=== PATIENT | female | born 1980 | race Caucasian/White ===

== ENCOUNTER 2020-12-10 06:15 | Inpatient (IN) | payer BC ==
[2020-12-10] MEDS ORDERED: Dexamethasone 4 MG/ML SDV ONE (06:41)
[2020-12-10] MEDS ORDERED: fentaNYL 250 MCG/5 ML SDV ONE ×3 (06:41→08:56)
[2020-12-10] MEDS ORDERED: Ondansetron 4 MG/2 ML SDV ONE (06:41)
[2020-12-10] MEDS ORDERED: Glycopyrrolate 0.2 MG/ML 5 ML MDV ONE (06:41)
[2020-12-10] MEDS ORDERED: Rocuronium 50 MG/5 ML Vial ONE (06:41)
[2020-12-10] MEDS ORDERED: Neostigmine Methylsulfate 1 MG/ML 5 ML Syringe ONE (06:41)
[2020-12-10] MEDS ORDERED: Succinylcholine 200 MG/10 ML MDV ONE (06:41)
[2020-12-10] MEDS ORDERED: Propofol 200 MG/20 ML SDV ONE (06:41)
[2020-12-10] MEDS ORDERED: Scopolamine 1.5 MG Transdermal Patch TOP ONE (07:00)
[2020-12-10] MEDS ORDERED: Acetaminophen 500 MG Tab PO ONE (07:00)
[2020-12-10] MEDS ORDERED: Celecoxib 200 MG Cap PO ONE (07:00)
[2020-12-10] MEDS ORDERED: Meropenem 500 MG in Sodium Chloride 0.9% 50 ML IV ONE (07:30)
[2020-12-10] MEDS ORDERED: Dextrose 5%-Lactated Ringers 1,000 ML IV SCH (07:30)
[2020-12-10] MEDS ORDERED: Ketamine 500 MG/5 ML MDV IV SCH (08:30)
[2020-12-10] MEDS ORDERED: Ketamine 50 MG in Sodium Chloride 0.9% 49.5 ML IV SCH (08:30)
[2020-12-10] MEDS ORDERED: SODIUM CHLORIDE 0.9% IV SCH (08:30)
[2020-12-10] MEDS ORDERED: MAGNESIUM SULFATE IV SCH (08:30)
[2020-12-10] MEDS: cefOXitin 2 GM Vial ONE ×2 (09:26→09:40)
[2020-12-10] MEDS ORDERED: hydrOXYzine HCL 100 MG/2 ML SDV IM ONE (10:18)
[2020-12-10] MEDS ORDERED: Ondansetron 4 MG/2 ML SDV IVPUSH ONE (10:28)
[2020-12-10] MEDS ORDERED: Lactated Ringers 1,000 ML ONE (11:18)
[2020-12-10] MEDS ORDERED: Cyclobenzaprine 10 MG Tab PO PRN (11:29)
[2020-12-10] MEDS: Metoclopramide 10 MG/2 ML SDV IVPUSH PRN (11:41)
[2020-12-10] MEDS ORDERED: Acetaminophen 500 MG Tab PO PRN (12:00)
[2020-12-10] MEDS ORDERED: HYDROmorphone 0.5 MG/0.5 ML Syringe IVPUSH PRN (12:00)
[2020-12-10] MEDS ORDERED: Labetalol 20 MG/4 ML Syringe IVPUSH PRN (12:00)
[2020-12-10] MEDS ORDERED: hydrOXYzine HCL 100 MG/2 ML SDV IM PRN (12:00)
[2020-12-10] MEDS ORDERED: Ondansetron 4 MG/2 ML SDV IVPUSH PRN (12:00)
[2020-12-10] MEDS ORDERED: Calcium Gluconate 10% 1 GM/10 ML SDV IVPUSH PRN (12:00)
[2020-12-10] MEDS ORDERED: traMADol 50 MG Tab PO PRN (12:00)
[2020-12-10] MEDS ORDERED: HYDROmorphone 1 MG/ML Syringe IV PRN (12:00)
[2020-12-10] MEDS ORDERED: oxyCODONE 5 MG Tab PO PRN (12:00)
[2020-12-10] MEDS ORDERED: diphenhydrAMINE 50 MG/ML SDV IVPUSH PRN (12:00)
[2020-12-10] MEDS: Dextrose 5%-Lactated Ringers 1,000 ML IV SCH (13:55)
[2020-12-10] MEDS ORDERED: Pantoprazole 40 MG Vial IVPUSH SCH (14:00)
[2020-12-10] MEDS: Meropenem 500 MG in Sodium Chloride 0.9% 50 ML IV SCH ×2 (14:10→19:29)
[2020-12-10] MEDS: Heparin Sodium 5,000 Units/ML Vial SUBCUT SCH ×2 (14:11→21:16)
[2020-12-10] MEDS: Acetaminophen 500 MG Tab PO SCH ×2 (14:12→21:16)
[2020-12-10] MEDS ORDERED: MVI, Adult with Vitamin K 10 ML, Thiamine 200 MG, Zinc/Copper/Manganese/Selenium 1 ML i... IV SCH ×4 (16:00)
[2020-12-11] MEDS ORDERED: Iopamidol 612 MG/ML 50 ML SDV PO ONE (01:56)
[2020-12-11] MEDS: Meropenem 500 MG in Sodium Chloride 0.9% 50 ML IV SCH ×4 (02:52→20:17)
[2020-12-11] MEDS: Dextrose 5%-Lactated Ringers 1,000 ML IV SCH (04:44)
[2020-12-11] MEDS: Acetaminophen 500 MG Tab PO SCH ×3 (05:05→22:16)
[2020-12-11] MEDS: Heparin Sodium 5,000 Units/ML Vial SUBCUT SCH ×3 (05:05→22:17)
[2020-12-11] MEDS ORDERED: hydrOXYzine HCl 25 MG Tab PO PRN (06:33)
--- NOTE | 2020-12-11 08:28 | PN ---
DATE OF SERVICE: 12/11/2020 SUBJECTIVE: Saman is postop day #1. Her upper GI was normal. Vital signs have been stable. Oral intake is 1176 and output 4025. SVETA drain put out 85 mL of a light pink drainage. She has been up ambulating. Pain has been controlled with energy protocol. She has no questions or concerns. OBJECTIVE: GENERAL: Janessa Smith is a pleasant 40-year-old female. She is alert and orientated. VITAL SIGNS: TPR 95.9, 68, and 18 and blood pressure 145/71. HEENT: Negative. NECK: Supple. HEART: Regular rate and rhythm. LUNGS: Clear. ABDOMEN: Dressing is dry and intact. SVETA drain is as above. EXTREMITIES: Without peripheral edema. SCDs are on. ASSESSMENT: 1. Laparoscopic Dana-en-Y gastric bypass surgery. 2. Liver biopsy. 3. Repair of a paraesophageal diaphragmatic hernia. 4. Excision of a mediastinal lipoma. 5. Excision of a cystic peritoneal nodule in gastric fundus. POSTOPERATIVE DIAGNOSES: 1. Morbid obesity. 2. Hepatomegaly. 3. Large diaphragmatic hernia. 4. Mediastinal lipoma. 5. Cystic peritoneal implant on gastric fundus. DATE OF PROCEDURE: 12/10/2020. SURGEON: Varun Rodriguez MD PLAN: 1. Step 2 gastric bypass diet without cereal. 2. Decrease IV D5 LR to 100 mL per hour. 3. Dressing off, may shower. 4. Atarax 50 mg q.4 hours p.r.n. pain. 5. Zofran 4 mg ODT q.4 hours p.r.n. nausea. 6. Communication order to have 3 med cups per hour and record at bedside. 7. Continue use of incentive spirometer. 8. Continue ambulation. 9. We will evaluate p.r.n. or in the a.m. Radha Deluca PA-C /[id number]
--- NOTE | 2020-12-11 09:01 | CR ---
UGI Limited HISTORY: Postbariatric surgery FINDINGS: Patient swallowed water-soluble contrast. Upright views of the abdomen show no evidence of extravasation or obstruction. There is a surgical drain in the left upper quadrant IMPRESSION: Status post bariatric surgery No extravasation or obstruction seen
[2020-12-11] MEDS: Citalopram 20 MG Tab PO SCH (09:47)
[2020-12-11] MEDS: Loratadine 10 MG Tab PO SCH (09:47)
[2020-12-11] MEDS: Celecoxib 200 MG Cap PO SCH ×2 (09:48→20:26)
[2020-12-11] MEDS: SCOPOLAMINE PATCH CHECK TOP SCH (09:49)
[2020-12-11] MEDS: Ondansetron 4 MG Tab.DIS PO PRN (12:52)
[2020-12-11] MEDS: Pantoprazole 40 MG Delayed-Release Granules 1 Packet PO SCH (13:58)
--- NOTE | 2020-12-11 15:01 | US ---
VL Duplex Lwr Ext Veins Comp HISTORY: No Clinical Info FINDINGS: The deep veins of the both lower extremities demonstrate normal augmentation and compressibility. No evidence for deep venous thrombosis. IMPRESSION: Normal bilateral lower extremity venous Doppler study.
[2020-12-11] MEDS ORDERED: MVI, Adult with Vitamin K 10 ML, Thiamine 200 MG, Zinc/Copper/Manganese/Selenium 1 ML i... IV SCH ×4 (16:00)
[2020-12-11] MEDS: Metoclopramide 10 MG/2 ML SDV IVPUSH PRN (22:14)
[2020-12-12] MEDS: Ondansetron 4 MG Tab.DIS PO PRN ×2 (01:07→09:48)
[2020-12-12] MEDS: Dextrose 5%-Lactated Ringers 1,000 ML IV SCH ×3 (01:08→21:16)
[2020-12-12] MEDS: Heparin Sodium 5,000 Units/ML Vial SUBCUT SCH ×3 (06:06→21:14)
[2020-12-12] MEDS: Acetaminophen 500 MG Tab PO SCH ×3 (06:06→21:14)
[2020-12-12] MEDS: Citalopram 20 MG Tab PO SCH (08:22)
[2020-12-12] MEDS: Loratadine 10 MG Tab PO SCH (08:22)
[2020-12-12] MEDS: Celecoxib 200 MG Cap PO SCH ×2 (08:22→21:14)
[2020-12-12] MEDS: SCOPOLAMINE PATCH CHECK TOP SCH (08:23)
[2020-12-12] MEDS ORDERED: Cyanocobalamin (Vitamin B12) 1,000 MCG/ML SDV IM ONE (09:00)
[2020-12-12] MEDS: Metoclopramide 10 MG/2 ML SDV IVPUSH PRN ×2 (09:49→16:47)
--- NOTE | 2020-12-12 11:34 | PN ---
DATE OF SERVICE: 12/12/2020 SUBJECTIVE: Janessa has had quite a bit in the form of nausea, which diminishes after taking Zofran ODT. She states is mainly when drinking water. Reports she has always had a little bit of nausea with drinking water even before surgery, but it is worse now. No emesis. Oral intake was 1340. Urine output 3700. SVETA drain put out 85 mL of serosanguineous drainage. She has been up ambulating and using IS. Pain has been controlled with energy protocol. REVIEW OF SYSTEMS: Remainder of review of systems negative for any pertinent positives or negatives. Janessa does report she had a rash on her chest yesterday, was given some Benadryl. Nothing was reported other than by patient. OBJECTIVE: GENERAL: Janessa Smith is a pleasant 40-year-old female, alert and orientated. VITAL SIGNS: On TPR 97, 66, and 18. Blood pressure 122/67. HEENT: Negative. NECK: Supple. HEART: Regular rate and rhythm. LUNGS: Clear. ABDOMEN: Dressings dry and intact. Abdominal binder is on. SVETA drain as above. EXTREMITIES: Without peripheral edema. DIAGNOSTIC DATA: Duplex scan peripheral vascular ultrasound showed normal bilateral lower extremities. No DVTs. ASSESSMENT: 1. Postoperative nausea. 2. Laparoscopic Dana-en-Y gastric bypass surgery. a. Liver biopsy. b. Repair of paraesophageal diaphragmatic hernia. c. Excision of mediastinal lipoma. d. Excision of cystic peritoneal nodule in gastric fundus. POSTOPERATIVE DIAGNOSES: 1. Morbid obesity. 2. Hepatomegaly. 3. Large diaphragmatic hernia. 4. Mediastinal lipoma. 5. Cystic peritoneal implant on gastric fundus. 6. Date of procedure 12/10/2020. Surgeon: Varun Rodriguez MD. PLAN: Continue to drink three med cups per hour. Discussed sitting upright when drinking fluids and to remain upright to see if this will help with the nausea. Discussed other options of sugar free liquids other than Crystal Light. Continue IV, ambulation and we will evaluate p.r.n. or in a.m. Radha Deluca PA-C /[id number]
[2020-12-12] MEDS: Pantoprazole 40 MG Delayed-Release Granules 1 Packet PO SCH (13:41)
[2020-12-12] MEDS ORDERED: Metoclopramide 10 MG/2 ML SDV ONE (16:44)
[2020-12-13] MEDS: Heparin Sodium 5,000 Units/ML Vial SUBCUT SCH (05:06)
[2020-12-13] MEDS: Acetaminophen 500 MG Tab PO SCH (05:06)
[2020-12-13] MEDS: Celecoxib 200 MG Cap PO SCH (08:33)
[2020-12-13] MEDS: Loratadine 10 MG Tab PO SCH (08:33)
[2020-12-13] MEDS: Citalopram 20 MG Tab PO SCH (08:33)
[2020-12-13] MEDS ORDERED: Magnesium Hydroxide 400 MG/5 ML Susp 30 ML Cup PO ONE (09:00)
--- NOTE | 2020-12-13 15:18 | DISCH ---
ADMISSION DIAGNOSES: 1. Morbid obesity. 2. BMI 59.6. 3. Prediabetes. 4. History of deep vein thrombosis. DISCHARGE DIAGNOSES: Laparoscopic Dana-en-Y gastric bypass surgery: 1. Liver biopsy. 2. Repair of paraesophageal diaphragmatic hernia. 3. Excision of mediastinal lipoma. 4. Excision of cystic peritoneal nodule in gastric fundus. POSTOPERATIVE DIAGNOSES: 1. Morbid obesity. 2. Hepatomegaly. 3. Large diaphragmatic hernia. 4. Mediastinal lipoma. 5. Cystic peritoneal implant in gastric fundus. Date of procedure 12/10/2020. Surgeon: Varun Rodriguez MD. HISTORY: Janessa Smith is a 40-year-old female with longstanding history of morbid obesity and increasing comorbidities. After preoperative evaluation and discussion of possible risks and possible complications, she wished to proceed with surgical procedure. HOSPITAL COURSE: Janessa had her surgery on 12/10/2020. She had no operative complications. On postoperative day #1, her upper GI was normal. Her IV was decreased to 100 mL per hours, and she was started on a step 2 gastric bypass diet. On postoperative day #2, she had quite a bit of postoperative nausea. Oral intake was decreased. She was given Zofran ODT and nausea gradually subsided. On postoperative day #3, Janessa was able to be discharged to home without any complications. PHYSICAL EXAMINATION: GENERAL: Janessa Smith is a pleasant 40-year-old female, height is 5 feet 10 inches, weight is 415 pounds. BMI is 59.6. VITAL SIGNS: TPR 95.7, 59, 16, blood pressure 141/71. HEENT: Negative. NECK: Supple. HEART: Regular rate and rhythm. LUNGS: Clear. ABDOMEN: Trocar sites look good, healing well. Sutures intact. SVETA drain will be removed prior to discharge and a 4 x 4 will be placed over it. Abdominal binder is on. EXTREMITIES: Without peripheral edema. DISPOSITION: Discharged to home. CONDITION: Stable and improving. FOLLOWUP: Appointment with Radha Deluca PA-C, on 12/23/2020 at 11 a.m. at [facility]. HOME MEDICATIONS: 1. Zofran ODT 4 mg p.o. q.4 hours p.r.n. nausea #30. 2. She is to restart her Eliquis the same dose that she was in March after she had a DVT and she will take that until her first postop appointment. 3. Celebrex 200 mg p.o. b.i.d. with food. 4. Tylenol 1000 mg p.o. q.8 hours scheduled. 5. Continue Claritin 10 mg p.o. daily. 6. Torsemide 20 mg p.o. daily p.r.n. 7. Flonase 1 spray in each nostril daily as needed. 8. Citalopram 20 mg p.o. daily. DIET: Step 2 gastric bypass diet without cereal until 12/25/2020. Drink 8 to 10 glasses of water a day. ACTIVITY: No lifting greater than 10 pounds for 2 weeks. OTHER ACTIVITY: Walk 6 times daily. Driving: Do not drive for 1 week. Shower/bathing: May shower. Keep operative site clean and dry. Wear abdominal binder for 2 weeks if tolerated. Notify provider if any fever, increased pain, swelling, redness, drainage, nausea, or vomiting. SPECIAL INSTRUCTION: 1. Start your Eliquis when you get home and continue until your first postop appointment. 2. Wear support hose on the way home and when riding in the car and wear them at home during the day and take off at bedtime. 3. Use incentive spirometer every hour while awake for [address] home to walk 2 to 3 minutes for every hour in the car. /[id number]
--- NOTE | 2020-12-14 15:23 | PCM.EKG ---
#1 Interpretation EKG Date: 12/10/20 Time: 07:40 Rhythm: NSR Rate (Beats/Min): 67 [place]: Normal P-Wave: Present QRS: Normal ST-T: Normal QT: Normal DE/PQ Interval: normal Comparison: NA - No Prior EKG
--- NOTE | 2021-01-25 10:06 | OR ---
DATE OF PROCEDURE: 12/10/2020 SURGEON: Varun Rodriguez MD PREOPERATIVE DIAGNOSIS: Morbid obesity. POSTOPERATIVE DIAGNOSES: 1. Morbid obesity. 2. Marked hepatomegaly. 3. Large paraesophageal diaphragmatic hernia. 4. Mediastinal lipoma. 5. Cystic peritoneal implant on gastric fundus. OPERATIVE PROCEDURES: Diagnostic laparoscopy with: 1. Laparoscopic Dana-en-Y gastric bypass with long limb gastroenterostomy (31309). 2. Jamey-Cut needle liver biopsy (95656). 3. Repair of paraesophageal diaphragmatic hernia (84634). 4. Excision of mediastinal lipoma (31090). 5. Excision of cystic peritoneal nodule overlying gastric fundus (30668). ANESTHESIA: General. MEAT PACKAGER: Radha Deluca PA-C INDICATIONS FOR PROCEDURE: This is a 40-year-old female presenting with longstanding morbid obesity and increasingly significant comorbidities. After preoperative evaluation and discussion, she wished to proceed with a gastric bypass procedure. Potential risks of the procedure including bleeding, infection, leaks from various GI tract closures, problems with bowel obstruction over time as well as possibility of cardiopulmonary, septic, or hemorrhagic complications leading to were all discussed, and the patient wishes to proceed. DETAILS OF PROCEDURE: The patient was taken to the operating room, placed in a supine position. After general endotracheal anesthesia was induced, she was converted to a lithotomy position and the abdomen prepped and draped. 15 cm inferior and 5 cm left of the xiphoid process, transverse incision was made and the peritoneal cavity entered under direct vision with an Optiview trocar, inflated to 15 mmHg pressure with CO2. Laparoscope was reinserted. No underlying trocar insertion site injuries were seen. Following this, bilateral transversus abdominis plane blocks were placed and 5 additional trocars were placed across the upper and mid abdomen. The patient was noted to have marked hepatomegaly with the liver volume being roughly 2 to 3 times normal and the liver grossly fatty infiltrated. Jamey-Cut needle biopsies were obtained from the left lobe of liver. Minimal bleeding from the biopsy sites was controlled with electrocautery. The patient was noted to have a 2 mm cystic nodule over the gastric fundus. This was excised and sent for histologic evaluation. At this point, the omentum was divided in the midline up to the level of the transverse colon. The small bowel was then identified at the ligament of Treitz and traced out 150 cm distal to that point, where it was divided with the COLIN stapler. Small bowel was then traced out additional 150 cm where the [id number] enteroenterostomy was accomplished with an internal firing of the Endo-COLIN 60 mm stapler. Common opening was then closed transversely with the same stapler and the angles anastomosed and mesenteric defect approximated with some 0 Ethibond stitch along with 4 mL of fibrin sealant. Divided end of the Dana limb was then brought up through an antecolic approach to the level of the gastroesophageal junction without tension. At this point, the liver was retracted anteriorly. The patient was noted to have a quite large paraesophageal diaphragmatic hernia. The latter was reduced and the peritoneum overlying it incised and reflected downward. During the course of the dissection, the mediastinal lipoma was encountered, and to facilitate a more adequate crural repair, this was excised. An anterior repair of the diaphragmatic hernia was accomplished with 0 Ethibond sutures reinforced with PTFE pledgets. The gastrointestinal catheter was then inflated 15 mL and pulled up snugly against the EG junction. Gastric wall over the apex balloon was then marked with electrocautery and balloon catheter deflated and pulled up from the esophagus. The lesser omental adjacent to the gastric cardia was then incised allowing dissection behind the stomach at that level. The gastric pouch formation was initiated with transverse firing of the COLIN stapler at the level of the cauterized ricardo on the gastric cardia up to and through the angle of His with additional COLIN firings. Upon completion of the pouch, both staple lines appeared to be intact. The anvil of a 25 mm EEA stapler was attached to a Coal sump type tube. The latter was brought down through the mouth and taken out through a small opening in the gastric pouch, allowing the anvil likewise to be pulled down to within the gastric pouch. The divided end of the Dana limb was then opened and main body of EEA stapler passed several centimeters into the lumen of the small bowel, brought up, the anvil united with it, thus creating the gastrojejunostomy. Upon removal of the stapler, double donuts of mucosa were noted within it. The small bowel was closed off with a vascular staple line. The gastrojejunostomy was reinforced with some 3-0 Vicryl seromuscular stitch along with fibrin sealant. Leak test was accomplished with injection of 120 mL of air in the gastric pouch while submerging it with cefoxitin-containing saline solution. No leaks were identified. A single Wilfredo- Carrera drain was taken out through the left lateral trocar site and positioned adjacent to the gastrojejunostomy and from there up into the splenic fossa. Trocars were then sequentially removed and the peritoneal cavity deflated. Incisions were closed with 4-0 Vicryl skin stitch and also used to fix the drain. The patient was taken to the recovery room in satisfactory condition. There were no evident complications. Physician pediatric physical therapy assistant, Radha Deluca, played an essential role in assisting in this case, helping to position the patient, retract structures as needed, as well as suturing and cutting sutures when indicated. Her presence improved patient safety and decreased operative time. Varun Rodriguez MD /[id number]
== END 2020-12-13 11:30 | disposition home or self-care (01) | DRG 403 ==
LOC: JP.SDS 06:15 → JP.MS 06:15 → EDSTATUS 10:15
PROVIDERS: ADMIT Surgery; ATTEND Surgery
PROC: 0D164ZA Bypass Stomach to Jejunum, Percutaneous Endoscopic Approach (ICD-10-PCS; principal; 2020-12-10)
PROC: 0FB24ZX Excision of Left Lobe Liver, Percutaneous Endoscopic Approach, Diagnostic (ICD-10-PCS; 2020-12-10)
PROC: 0BQT4ZZ Repair Diaphragm, Percutaneous Endoscopic Approach (ICD-10-PCS; 2020-12-10)
PROC: 0JB63ZZ Excision of Chest Subcutaneous Tissue and Fascia, Percutaneous Approach (ICD-10-PCS; 2020-12-10)
PROC: 0DBW4ZZ Excision of Peritoneum, Percutaneous Endoscopic Approach (ICD-10-PCS; 2020-12-10)
DX: E66.01 Morbid (severe) obesity due to excess calories (principal); R73.03 Prediabetes; R16.0 Hepatomegaly, not elsewhere classified; K44.9 Diaphragmatic hernia without obstruction or gangrene; D17.4 Benign lipomatous neoplasm of intrathoracic organs; F41.9 Anxiety disorder, unspecified; M19.90 Unspecified osteoarthritis, unspecified site; F32.9 Major depressive disorder, single episode, unspecified; K21.9 Gastro-esophageal reflux disease without esophagitis; Z98.890 Other specified postprocedural states; Z79.899 Other long term (current) drug therapy; Z68.43 Body mass index [BMI] 50.0-59.9, adult; Z86.718 Personal history of other venous thrombosis and embolism; Z88.8 Allergy status to other drugs, medicaments and biological substances; Z88.1 Allergy status to other antibiotic agents; Z87.891 Personal history of nicotine dependence
CPT/HCPCS: 36415; 74240; 74240-26; 80053; 81025; 85027; 86850; 86900; 86901; 88304; 88305; 88307; 88313; 93005; 93970; 93970-26; A9270-GY; C9113; J0171; J0330; J0694; J1100; J1200; J1644; J2185; J2405; J2704; J2710; J2765; J2795; J3010; J3410; J3411; J3420; J3475; J3490; J7030; J7050; J7120; J7121; Q9967